=== PATIENT | female | born 2000 | race African-American/Black ===

== ENCOUNTER 2023-10-15 21:34 | Emergency (ER) | payer MEDICAID, OTHER ==
[~2023-10-15] VITALS: Ht 144.8 cm; Wt 61.9 kg
[2023-10-15 21:55] VITALS: BP 128/73; PULSE 82; RESP 18; TEMP 98.1
[2023-10-15] MEDS ORDERED: SULF400T11 PO (23:01)
[2023-10-15] MEDS ORDERED: CEPH500C PO (23:01)
[2023-10-15] MEDS: cefTRIAXone SOD 1,000 MG VL IM ONE (23:41)
[2023-10-16 00:51] VITALS: O2SAT 97
== END 2023-10-16 01:02 | disposition home or self-care (01) ==
LOC: ER 21:34
DX: N76.4 Abscess of vulva (principal)
CPT/HCPCS: 96372; 99283; J0696